=== PATIENT | male | born 1960 | race Two or more races ===

== ENCOUNTER → 2018-09-15 | Outpatient (CLI) | payer OTHER | END | disposition home or self-care (01) | LOC: CVU 07:29 | PROVIDERS: ATTEND Internal Medicine Cardiovascular Disease | DX: I35.8 Other nonrheumatic aortic valve disorders (principal); I10 Essential (primary) hypertension; E78.5 Hyperlipidemia, unspecified; Z72.0 Tobacco use | CPT/HCPCS: 0399T; 93306 ==

== ENCOUNTER 2019-05-21 10:01 | Inpatient (IN) | payer OTHER ==
[~2019-05-21] VITALS: Ht 170.2 cm; Wt 84.3 kg
[~2019-05-21 10:01] MED LIST: ALBU18HF INH; ASPI-496 PO; BACITRACIN 50,000 UNIT ONE; BIOT5TAB PO; BUPIVACAINE 0.25% ONE; BUPIVACAINE/PF 0.5% ONE; CHOL200024 PO; CYCL-259 PO; EPINEPHRINE 1 MG/ML, 1ML ONE; FENO160T PO; FENTANYL PF 250 MCG/5ML ONE; HYDR-3245 PO; HYDR200T72 PO; IBUP-1223 PO; LISI1TAB20 PO; MIDAZOLAM 1 MG/ML, 2ML ONE; OMEG-14 PO; SIMV10TA3 PO; THROMBIN 5,000 UNIT VIAL TP ONE; UBID50TA3 PO; VANCOMYCIN 1,000 MG ONE
[2019-05-21 10:26] VITALS: BP 131/78
[2019-05-21] MEDS ORDERED: LACTATED RINGERS 1,000 ML IV SCH (10:45)
[2019-05-21] MEDS ORDERED: CEFAZOLIN 1,000 MG ONE (12:42)
[2019-05-21] MEDS ORDERED: WATER-INJECTION,STERILE 10 ML IV ONE (12:42)
[2019-05-21] MEDS ORDERED: PROPOFOL 10 MG/ML, 20ML ONE (12:42)
[2019-05-21] MEDS ORDERED: LIDOCAINE-MPF 2% ,5ML ONE (12:42)
[2019-05-21] MEDS ORDERED: ROCURONIUM 10MG/ML,5ML ONE (12:42)
[2019-05-21] MEDS ORDERED: DEXAMETHASONE 4 MG/ML, 1ML ONE (12:55)
[2019-05-21] MEDS ORDERED: ONDANSETRON 2MG/ML, 2ML ONE (12:55)
[2019-05-21] MEDS ORDERED: FENTANYL PF 100 MCG/2ML IV PRN (13:30)
[2019-05-21] MEDS ORDERED: HYDROmorphone 2 MG/ML, 1ML IVPush PRN (13:30)
[2019-05-21] MEDS ORDERED: PROMETHAZINE 25 MG/ML, 1ML IV PRN (13:30)
[2019-05-21] MEDS ORDERED: OXYcodone 5 MG/5 ML ORAL.SOL UDC PO PRN (13:30)
[2019-05-21] MEDS ORDERED: HALOPERIDOL 5 MG/ML IV PRN (13:30)
[2019-05-21] MEDS ORDERED: hydrALAzine 20 MG/ML, 1ML IV PRN (13:30)
[2019-05-21] MEDS ORDERED: ALBUTEROL/IPRATROPIUM 2.5MG/0.5MG, 3 ML NPPB PRN (13:30)
[2019-05-21] MEDS ORDERED: METHOCARBAMOL 1,000 MG in DEXTROSE 5% 100 ML IV PRN (13:30)
[2019-05-21] MEDS ORDERED: MEPERIDINE/PF 25MG/ML,1ML IVPush PRN (13:30)
[2019-05-21] MEDS ORDERED: ACETAMINOPHEN 325 MG TABLET PO PRN (13:30)
[2019-05-21] MEDS ORDERED: LABETALOL 5MG/ML, 20ML IV PRN (13:30)
[2019-05-21] MEDS ORDERED: MEPERIDINE/PF 100 MG/ML ONE (13:44)
[2019-05-21] MEDS ORDERED: FENTANYL PF 100 MCG/2ML ONE (14:00)
[2019-05-21] MEDS ORDERED: BUPIVACAINE/PF 0.25% EPIDPUSH ONE (14:03)
[2019-05-21] MEDS ORDERED: FENTANYL PF 100 MCG/2ML EPIDPUSH ONE (14:04)
[2019-05-21] MEDS ORDERED: PROMETHAZINE 25 MG/ML, 1ML IM PRN (15:00)
[2019-05-21] MEDS ORDERED: METHOCARBAMOL 750 MG TABLET PO PRN (15:00)
[2019-05-21] MEDS ORDERED: morphine SULFATE 10 MG/ML, 1ML IVPush PRN (15:00)
[2019-05-21] MEDS ORDERED: CYCLOBENZAPRINE 10 MG TABLET PO PRN (15:00)
[2019-05-21] MEDS ORDERED: MAGNESIUM HYDROXIDE 8%, 30ML UDC PO PRN (15:00)
[2019-05-21] MEDS ORDERED: DIPHENHYDRAMINE 50 MG/ML, 1ML IVPush PRN (15:00)
[2019-05-21] MEDS ORDERED: SENNA/DOCUSATE TABLET PO PRN (15:00)
[2019-05-21] MEDS ORDERED: PHARMACY MAY ADJ FOR RENAL FX MC PRN (15:00)
[2019-05-21] MEDS ORDERED: ONDANSETRON 2MG/ML, 2ML IVPush PRN (15:00)
[2019-05-21] MEDS ORDERED: HYDROcodone/APAP 5/325 TABLET PO PRN (15:00)
[2019-05-21] MEDS ORDERED: OXYcodone/APAP 5/325MG TABLET PO PRN (15:00)
[2019-05-21] MEDS ORDERED: OXYcodone 5 MG/5 ML ORAL.SOL UDC ONE (15:41)
[2019-05-21] MEDS: HYDROcodone/APAP 10/325 MG TABLET PO PRN ×2 (17:15→21:15)
[2019-05-21] MEDS: NS + 20MEQ KCL 1,000 ML IV SCH (17:16)
[2019-05-21 19:33] VITALS: BP 133/79
[2019-05-21] MEDS ORDERED: SIMVASTATIN 10 MG TABLET PO SCH (21:00)
[2019-05-21] MEDS: HYDROXYCHLOROQUINE 200 MG TABLET PO SCH (21:15)
[2019-05-21] MEDS: CEFAZOLIN PMX 1GM/50ML 50 ML IVPB SCH (21:16)
[2019-05-21] MEDS: SODIUM CHLORIDE FLUSH 10ML SYR IVF SCH (21:16)
[2019-05-22] VITALS: BP 127/76
[2019-05-22] MEDS: HYDROcodone/APAP 10/325 MG TABLET PO PRN ×2 (02:34→06:16)
[2019-05-22] MEDS: CEFAZOLIN PMX 1GM/50ML 50 ML IVPB SCH (05:12)
[2019-05-22 06:54] VITALS: BP 121/74
[2019-05-22] MEDS: SODIUM CHLORIDE FLUSH 10ML SYR IVF SCH (08:26)
[2019-05-22] MEDS: HYDROXYCHLOROQUINE 200 MG TABLET PO SCH (08:26)
[2019-05-22] MEDS: NS + 20MEQ KCL 1,000 ML IV SCH (08:30)
[2019-05-22] MEDS ORDERED: ALBUTEROL SULFATE 2.5 MG/3 ML NPPB SCH (09:00)
[2019-05-22] MEDS ORDERED: FENOFIBRATE 145 MG TABLET PO SCH (09:00)
[2019-05-22] MEDS ORDERED: TEMPLATE NON-FORMULARY MED. (Biotin** 5 MG) PO SCH (09:00)
[2019-05-22] MEDS ORDERED: CHOLECALCIFEROL 1,000 UNIT TABLET PO SCH (09:00)
[2019-05-22] MEDS ORDERED: TEMPLATE NON-FORMULARY MED. (Lisinopril/Hydrochlorothiazide** (Lisinopril-Hctz 20-25 Mg Ta PO SCH (09:00)
== END 2019-05-22 10:52 | disposition home or self-care (01) | DRG 517 ==
LOC: OUT 10:01 → 4NE 16:04 → DCLOUNGE 05-22 10:48
PROVIDERS: ADMIT Neurological Surgery; ATTEND Neurological Surgery
PROC: 01NR0ZZ Release Sacral Nerve, Open Approach (ICD-10-PCS; 2019-05-21)
PROC: 4A11X4G Monitoring of Peripheral Nervous Electrical Activity, Intraoperative, External Approach (ICD-10-PCS; 2019-05-21)
PROC: 01NB0ZZ Release Lumbar Nerve, Open Approach (ICD-10-PCS; principal; 2019-05-21 10:00)
DX: M48.07 Spinal stenosis, lumbosacral region (principal); M48.062 Spinal stenosis, lumbar region with neurogenic claudication; M21.371 Foot drop, right foot; M21.372 Foot drop, left foot; G89.29 Other chronic pain; J44.9 Chronic obstructive pulmonary disease, unspecified; I10 Essential (primary) hypertension; F17.210 Nicotine dependence, cigarettes, uncomplicated; F12.90 Cannabis use, unspecified, uncomplicated; M51.16 Intervertebral disc disorders with radiculopathy, lumbar region; Z79.899 Other long term (current) drug therapy
CPT/HCPCS: 72100; J3490; S0020; G0378; J0171; J0690; J1100; J2250; J2405; J2704; J3010; J3370; J3480; J2175

== ENCOUNTER → 2019-06-14 | Outpatient (CLI) | payer OTHER ==
[~2019-06-14] MED LIST changes: -BACITRACIN 50,000 UNIT ONE; -BUPIVACAINE 0.25% ONE; -BUPIVACAINE/PF 0.5% ONE; -EPINEPHRINE 1 MG/ML, 1ML ONE; -FENTANYL PF 250 MCG/5ML ONE; -MIDAZOLAM 1 MG/ML, 2ML ONE; -THROMBIN 5,000 UNIT VIAL TP ONE; -VANCOMYCIN 1,000 MG ONE
== END | disposition home or self-care (01) ==
LOC: CFH 13:53
PROVIDERS: ATTEND Nurse Practitioner
DX: Z12.2 Encounter for screening for malignant neoplasm of respiratory organs (principal); I25.10 Atherosclerotic heart disease of native coronary artery without angina pectoris; F17.210 Nicotine dependence, cigarettes, uncomplicated
CPT/HCPCS: G0297